=== PATIENT | female | born 1990 | race Caucasian/White ===

== ENCOUNTER 2018-09-09 12:22 | Outpatient (CLI) | payer MEDICAID ==
[~2018-09-09] VITALS: Ht 182.9 cm; Wt 112.2 kg
[~2018-09-09 12:22] MED LIST: IBUP-1223 PO; OXYC-302 PO
[2018-09-09 13:00] VITALS: BP 124/77
[2018-09-09 13:23] LABS: AMPHETAMINE SCREEN, URINE Negative (Negative); BARBITURATE SCREEN, URINE Negative (Negative); BENZODIAZEPINE SCREEN, URINE Negative (Negative); CANNABINOID SCREEN, URINE Positive (Negative); COCAINE SCREEN, URINE Negative (Negative); METHADONE SCREEN, URINE Negative (Negative); OPIATE SCREEN, URINE Positive (Negative)
== END 2018-09-09 13:57 | disposition home or self-care (01) ==
LOC: LDOP 12:22
PROVIDERS: ATTEND Obstetrics & Gynecology
DX: O26.893 Other specified pregnancy related conditions, third trimester (principal); M54.5 Low back pain; F19.10 Other psychoactive substance abuse, uncomplicated; Z3A.38 38 weeks gestation of pregnancy
CPT/HCPCS: 59025; 80307; 87081; 99211; G0463